=== PATIENT | male | born 1940 | race Caucasian/White ===

== ENCOUNTER 2017-04-17 23:13 | Inpatient (IN) | payer MEDICARE, BC ==
[~2017-04-17] VITALS: Ht 182.9 cm; Wt 173.9 kg
[2017-04-17 23:16] VITALS: TEMP 97.6
[2017-04-17 23:20] VITALS: O2SAT 93
[2017-04-17 23:21] VITALS: BP 185/72; PULSE 106; RESP 24; O2SAT 94
[2017-04-17] MEDS ORDERED: ONDANSETRON HCL 4 MG/2 ML VIAL IV PUSH ONE (23:30)
[2017-04-17] MEDS ORDERED: SODIUM CHLORIDE 0.9% FLUSH 10 ML FLUSH IV FLUSH PRN (23:30)
[2017-04-17] MEDS ORDERED: HYDROmorphone HCL PF 2 MG/ML VIAL IV PUSH ONE (23:30)
--- NOTE | 2017-04-17 23:33 | PD ---
HPI Chief Complaint: Abdominal Pain Time Seen by Provider: 23:27 Travel History International Travel<30 days: No Contact w/Intl Traveler<30days: No Traveled to known affect area: No History of Present Illness HPI 76-year-old male presents to the emergency department from home by EMS transport for evaluation of severe right lower quadrant abdominal pain onset 30 minutes after eating beef. Patient has known history of very large right-sided ventral hernia that has been determined to be electively inoperable as his physicians at the [facility] have identified to have a 50-50 chance of survival of the surgery due to his underlying health. Patient states that he always develops abdominal pain when he eats beef as he cannot tolerate beef consumption. Shortly after eating beef this evening he started having right lower quadrant pain. Patient states he has had a very large hernia for years more recently he thinks it might be slightly larger but has not changed significantly in size or character or location tonight or since yesterday. Patient rates pain as severe. No nausea or vomiting. Patient did take antacid without relief. Patient did not receive any pain medication en route by EMS. Patient only reports history of hypertension and denies CAD dyslipidemia diabetes COPD or peripheral vascular disease. [facility] Past Medical History Narrative Medical Hypertension morbid obesity sleep apnea cholesterol ventral hernia; nursing notes reviewed Hypertension: Yes Past Surgical History Abdominal Surgery: Yes (HERNIA) Social History Alcohol Use: Yes (OCCASIONALLY) Tobacco Use: No Substance Use: No Allergies-Medications (Allergen,Severity, Reaction): Coded Allergies: No Known Allergies (Unverified , 04/17/17) Reported Meds & Prescriptions Reported Meds & Active Scripts Active Reported Aller-Jessica (Cetirizine HCl) 10 Mg Tablet Flax Seed Oil 1300 mg (Flaxseed (Linseed)) 1,300-670MG Cap Aspirin 81 Mg Chew 81 Mg CHEW DAILY Atorvastatin (Atorvastatin Calcium) 40 Mg Tab 40 Mg PO HS Lisinopril 20 Mg Tab 20 Mg PO DAILY Amlodipine (Amlodipine Besylate) 10 Mg Tab 10 Mg PO DAILY Narrative Medication htn, cholesterol Review of Systems Except as stated in HPI: all other systems reviewed are Neg Physical Exam Narrative GENERAL: Obese male in obvious discomfort moaning SKIN: Warm and dry. HEAD: Normocephalic. EYES: No scleral icterus. No injection or drainage. NECK: Supple, trachea midline. No JVD or lymphadenopathy. CARDIOVASCULAR: Increased regular rate and rhythm without murmurs, gallops, or rubs. RESPIRATORY: Breath sounds equal bilaterally. No accessory muscle use. GASTROINTESTINAL: Abdomen soft, periumbilical tenderness to palpation , extremely large right side ventral hernia, not reducible (per patient no change x 15 years), non-rigid, diffusely distended. MUSCULOSKELETAL: No cyanosis, or edema. BACK: Nontender without obvious deformity. No CVA tenderness. Data Data Last Documented VS Vital Signs Date Time Temp Pulse Resp B/P (MAP) Pulse Ox O2 Delivery O2 Flow Rate FiO2 04/18/17 01:40 96 Non-Rebreather 15.00 04/18/17 01:39 136 24 134/58 (83) 04/17/17 23:16 97.6 Orders Orders Complete Blood Count With Diff (04/17/17 23:27) Comprehensive Metabolic Panel (04/17/17 23:27) Lipase (04/17/17 23:27) Lactic Acid (04/17/17 23:27) Prothrombin Time / Inr (Pt) (04/17/17 23:27) Act Partial Throm Time (Ptt) (04/17/17 23:27) Urinalysis - C+S If Indicated (04/17/17 23:27) Iv Access Insert/Monitor (04/17/17 23:27) Ecg Monitoring (04/17/17 23:27) Oximetry (04/17/17 23:27) Sodium Chloride 0.9% Flush (Ns Flush) (04/17/17 23:30) Electrocardiogram (04/17/17 23:27) Chest, Single Ap (04/17/17 23:27) Troponin I (04/17/17 23:27) Ondansetron Inj (Zofran Inj) (04/17/17 23:30) Hydromorphone Pf Inj (Dilaudid Pf Inj) (04/17/17 23:30) Hydromorphone Pf Inj (Dilaudid Pf Inj) (04/18/17 00:30) Sodium Chlor 0.9% 1000 Ml Inj (Ns 1000 M (04/18/17 00:30) Ct Abd/Pel W Iv Contrast(Rout) (04/18/17 00:49) Piperacil-Tazo 4.5 Gm Premix (Zosyn 4.5 (04/18/17 01:00) Resp Bipap / Cpap Non Invas Vt (04/18/17 ) Iohexol 350 Inj (Omnipaque 350 Inj) (04/18/17 01:23) Metronidazole 500 Mg Inj (Flagyl 500 Mg (04/18/17 01:30) Sodium Chlor 0.9% 1000 Ml Inj (Ns 1000 M (04/18/17 01:30) Sodium Chlor 0.9% 1000 Ml Inj (Ns 1000 M (04/18/17 01:45) Sodium Chlor 0.9% 1000 Ml Inj (Ns 1000 M (04/18/17 01:45) Sodium Chlor 0.9% 1000 Ml Inj (Ns 1000 M (04/18/17 02:00) Place Ng Tube To Low Intermit (04/18/17 01:47) Ng Gastric Tube Insert/Monitor (04/18/17 01:47) Admit Order (Ed Use Only) (04/18/17 ) Charter Pilot / Telemetry SAVANNA.Q8H (04/18/17 01:51) Diet Npo (04/18/17 Breakfast) Activity Bed Rest (04/18/17 01:51) Notify Dr: Other (04/18/17 01:51) Labs Laboratory Tests Test 04/17/17 23:44 White Blood Count 16.5 TH/MM3 Red Blood Count 5.35 MIL/MM3 Hemoglobin 16.2 GM/DL Hematocrit 48.2 % Mean Corpuscular Volume 90.2 FL Mean Corpuscular Hemoglobin 30.3 PG Mean Corpuscular Hemoglobin Concent 33.6 % Red Cell Distribution Width 15.0 % Platelet Count 202 TH/MM3 Mean Platelet Volume 10.9 FL Neutrophils (%) (Auto) 66.4 % Lymphocytes (%) (Auto) 30.2 % Monocytes (%) (Auto) 2.3 % Eosinophils (%) (Auto) 0.9 % Basophils (%) (Auto) 0.2 % Neutrophils # (Auto) 10.9 TH/MM3 Lymphocytes # (Auto) 5.0 TH/MM3 Monocytes # (Auto) 0.4 TH/MM3 Eosinophils # (Auto) 0.2 TH/MM3 Basophils # (Auto) 0.0 TH/MM3 CBC Comment DIFF FINAL Differential Comment Prothrombin Time 10.5 SEC Prothromb Time International Ratio 1.0 RATIO Activated Partial Thromboplast Time 22.5 SEC Blood Urea Nitrogen 15 MG/DL Creatinine 1.56 MG/DL Random Glucose 254 MG/DL Total Protein 8.3 GM/DL Albumin 3.9 GM/DL Calcium Level 9.4 MG/DL Alkaline Phosphatase 78 U/L Aspartate Amino Transf (AST/SGOT) 36 U/L Alanine Aminotransferase (ALT/SGPT) 26 U/L Total Bilirubin 0.7 MG/DL Sodium Level 139 MEQ/L Potassium Level 4.4 MEQ/L Chloride Level 105 MEQ/L Carbon Dioxide Level 24.2 MEQ/L Anion Gap 10 MEQ/L Estimat Glomerular Filtration Rate 44 ML/MIN Lactic Acid Level 3.4 mmol/L Troponin I LESS THAN 0.02 NG/ML Lipase 291 U/L MDM Medical Decision Making Medical Screen Exam Complete: Yes Emergency Medical Condition: Yes Medical Record Reviewed: Yes Interpretation(s) CBC & BMP Diagram 04/17/17 23:44 Total Protein 8.3 H, Albumin 3.9, Calcium Level 9.4, Alkaline Phosphatase 78, Aspartate Amino Transf (AST/SGOT) 36, Alanine Aminotransferase (ALT/SGPT) 26, Total Bilirubin 0.7 Vital Signs Date Time Temp Pulse Resp B/P (MAP) Pulse Ox O2 Delivery O2 Flow Rate FiO2 04/18/17 01:39 136 24 134/58 (83) 90 Nasal Cannula 5.00 04/17/17 23:21 24 04/17/17 23:21 106 24 185/72 (109) 94 Nasal Cannula 2.00 04/17/17 23:16 97.6 lactic acid: 3.4, elevated EKG: Sinus tachycardia rate [address] elevation or ectopy noted CT abd/pel: ONCLUSION: 1. There is a small amount of free intraperitoneal air indicating perforated bowel. The location of perforation is not identified. A small volume of free fluid is present within the abdomen and pelvis as well as the ventral hernia sac. 2. There is a large ventral abdominal wall hernia containing most of the small bowel and colon. It also contains free fluid. The hernia sac is not completely visualized since it extends outside of the imaged [id number]. 3. 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 4. Small right pleural effusion with bibasilar atelectasis versus consolidation. 5. The findings concerning perforated bowel were discussed with Dr. Spencer. Jatinder Fernandez MD on April 18, 2017 at 1:27 Board Certified Radiologist. This report was verified electronically. Differential Diagnosis Incarcerated hernia strangulated hernia bowel obstruction perforated viscus Narrative Course 1:[address] Thompson --free fluid free air; call to general surgery -- Dr Salguero Critical Care Narrative Aggregate critical care time was 35 minutes. Time to perform other separately billable procedures was not included in the critical care time. My time did not include minutes spent treating any other patients simultaneously or on activities that did not directly contribute to the patient's treatment. The services I provided to this patient were to treat and/or prevent clinically significant deterioration that could result in: Sepsis, septic shock, I provided critical care services requiring my management, as noted below: Chart data review, documentation time, medication orders and management, vital sign assessments/reviewing monitor data, ordering and reviewing lab tests, ordering and interpreting/reviewing x-rays and diagnostic studies, care of the patient and discussion of the patient with the admitting physicians. Sepsis Criteria SIRS Criteria (2 or more): Heart rate over 90, RR > 20 or PaCO2 < 32, WBC > 06099, < 4000 or > 10% bands Sepsis Criteria (SIRS+source): Infect source susp/known ( GI perforation/bowel) Physician Communication Physician Communication discussed with radiology; discussed with surgeon --no OR now, admit to ICU; discussed with videogame tester Diagnosis Primary Impression: Perforation of viscus Additional Impression: Sepsis Qualified Codes: A41.9 - Sepsis, unspecified organism Admitting Information Admitting Physician Requests: Admit Josie Spencer MD Apr 17, 2017 23:33
--- NOTE | 2017-04-17 23:49 | RADRPT ---
EXAM DATE/TIME: 04/17/2017 23:41 [facility] COMPARISON: No previous studies available for comparison. INDICATIONS : Shortness of breath, abdominal pain. MEDICAL HISTORY : Hypertension. SURGICAL HISTORY : None. ENCOUNTER: Initial ACUITY: 1 day PAIN SCORE: 0/10 LOCATION: Bilateral chest FINDINGS: Portable AP view of the chest demonstrates a normal-sized cardiac silhouette. Lungs are underinflated with mild bibasilar opacities. No pleural effusion or pneumothorax is identified. The bones and soft tissues demonstrate no acute finding. CONCLUSION: Underinflated with mild bibasilar opacity most likely representing atelectasis related to the underin flation or less likely mild airspace consolidation. Jatinder Fernandze MD on April 17, 2017 at 23:46 Board Certified Radiologist. This report was verified electronically.
[2017-04-17 23:59] LABS: AUTOMATED NEUTROPHIL # 10.9 TH/MM3 (1.8-7.7); BASOPHIL % 0.2 % (0.0-2.0); EOSINOPHIL # 0.2 TH/MM3 (0-0.4); EOSINOPHIL % 0.9 % (0.0-4.0); HEMATOCRIT 48.2 % (39.0-51.0); HEMOGLOBIN 16.2 GM/DL (13.0-17.0); LYMPH % 30.2 % (9.0-44.0); MEAN CELL VOLUME 90.2 FL (80.0-100.0); MEAN CORPUSCULAR HEMOGLOBIN 30.3 PG (27.0-34.0); MEAN CORPUSCULAR HGB CONC 33.6 % (32.0-36.0); MEAN PLATELET VOLUME 10.9 FL (7.0-11.0); MONO % 2.3 % (0.0-8.0); MONOCYTE # 0.4 TH/MM3 (0-0.9); NEUT % 66.4 % (16.0-70.0); PLATELET COUNT 202 TH/MM3 (150-450); RED BLOOD COUNT 5.35 MIL/MM3 (4.50-5.90); WHITE BLOOD COUNT 16.5 TH/MM3 (4.0-11.0)
[2017-04-18] VITALS (21 sets, daily range): BP systolic 72–148; BP diastolic 36–82; PULSE 112–140; RESP 24–41; TEMP 98.3–99.5; O2SAT 80–97
[2017-04-18 00:13] LABS: ALKALINE PHOSPHATASE 78 U/L (45-117); TOTAL BILIRUBIN ADULT 0.7 MG/DL (0.2-1.0); TOTAL PROTEIN 8.3 GM/DL (6.4-8.2); TROPONIN I LESS THAN 0.02 NG/ML (0.02-0.05)
[2017-04-18 00:15] LABS: PROTHROMBIN TIME - PATIENT 10.5 SEC (9.8-11.6)
[2017-04-18 00:19] LABS: ALBUMIN 3.9 GM/DL (3.4-5.0); ALT (GPT) 26 U/L (12-78); AST (GOT) 36 U/L (15-37); BICARBONATE 24.2 MEQ/L (21.0-32.0); BLOOD UREA NITROGEN 15 MG/DL (7-18); CALCIUM 9.4 MG/DL (8.5-10.1); CHLORIDE 105 MEQ/L (98-107); CREATININE 1.56 MG/DL (0.60-1.30); GLOMERULAR FILTRATION RATE 44 ML/MIN (>89); GLUCOSE,RANDOM 254 MG/DL (74-106); SODIUM (NA) 139 MEQ/L (136-145)
[2017-04-18] MEDS ORDERED: HYDROmorphone HCL PF 2 MG/ML VIAL IV PUSH ONE (00:30)
[2017-04-18] MEDS: SODIUM CHLOR 0.9% 1000 ML INJ 1,000 ML IV SCH ×4 (00:33→11:47)
[2017-04-18] MEDS ORDERED: PIPERACIL-TAZO 4.5 GM PREMIX 100 ML IV ONE (01:00)
[2017-04-18] MEDS ORDERED: IOHEXOL 350 MG/ML 10 ML VIAL (for RAD DIAG) IVCONTRAST ONE (01:23)
[2017-04-18] MEDS ORDERED: SODIUM CHLOR 0.9% 1000 ML INJ 1,000 ML IV ONE ×4 (01:30→02:00)
[2017-04-18] MEDS ORDERED: metroNIDAZOLE 500 MG INJ 100 ML IV ONE (01:30)
--- NOTE | 2017-04-18 01:38 | RADRPT ---
EXAM DATE/TIME: 04/18/2017 01:02 [facility] COMPARISON: No previous studies available for comparison. INDICATIONS : Right lower quadrant pain. IV CONTRAST: 80 cc Omnipaque 350 (iohexol) IV ORAL CONTRAST: No oral contrast ingested. RADIATION DOSE: 40.59 CTDIvol (mGy) ; Patient body habitus; Patient positioning MEDICAL HISTORY : Hypertension. Ventral hernia. SURGICAL HISTORY : None. ENCOUNTER: Initial ACUITY: 1 day PAIN SCALE: 10/10 LOCATION: Right lower quadrant TECHNIQUE: Volumetric scanning of the abdomen and pelvis was performed. Using automated exposure control and ad justment of the mA and/or kV according to patient size, radiation dose was kept as low as reasonably achievable to obtain optimal diagnostic quality images. DICOM format image data is available electro nically for review and comparison. FINDINGS: LOWER LUNGS: There is trace right pleural effusion with bilateral lower lobe atelectasis versus consolidation. LIVER: Homogeneous density without lesion. There is no dilation of the biliary tree. No calcified gallston es. SPLEEN: Normal size without lesion. PANCREAS: Within normal limits. KIDNEYS: Normal in size and shape. There is no mass, stone or hydronephrosis. There are bilateral renal sinus cysts. ADRENAL GLANDS: Within normal limits. VASCULAR: There is moderate severe atherosclerotic disease with ectatic infrarenal aorta. There is a common zahida ac artery aneurysm on the right measuring 3.2 cm. BOWEL/MESENTERY: A small hiatal hernia is present. Stomach demonstrates no acute finding. Almost the entire small josiah l is located within a ventral hernia which extends off the imaged [id number]. Multiple attempts we re made to include this in the area of imaging without success. Most of the colon is also within the ventral hernia. The sigmoid colon demonstrates diverticulosis and is located within a ventral hernia that extends to the left. A small volume of free air is present within the abdomen and there is a sma ll volume of free fluid in the abdomen and pelvis. ABDOMINAL WALL: There is a large ventral anterior abdominal wall hernia containing most of the small bowel and colon. It is not completely imaged. It contains a small amount of free fluid. RETROPERITONEUM: There is no lymphadenopathy. BLADDER: No wall thickening or mass. REPRODUCTIVE: Within normal limits. INGUINAL: There is no lymphadenopathy. There is a small fat containing left inguinal hernia. MUSCULOSKELETAL: There are degenerative changes of the lumbar spine. CONCLUSION: 1. There is a small amount of free intraperitoneal air indicating perforated bowel. The location of p erforation is not identified. A small volume of free fluid is present within the abdomen and pelvis a s well as the ventral hernia sac. 2. There is a large ventral abdominal wall hernia containing most of the small bowel and colon. It al so contains free fluid. The hernia sac is not completely visualized since it extends outside of the i bree [id number]. 3. Moderate to severe atherosclerotic disease with right common iliac artery aneurysm measuring 3.2 c m. 4. Small right pleural effusion with bibasilar atelectasis versus consolidation. 5. The findings concerning perforated bowel were discussed with Dr. Spencer. Jatinder Fernandez MD on April 18, 2017 at 1:27 Board Certified Radiologist. This report was verified electronically.
[2017-04-18] MEDS ORDERED: ACETAMINOPHEN 325 MG TAB PO PRN (02:00)
[2017-04-18] MEDS ORDERED: MAGNESIUM HYDROXIDE SUSP 30 ML CUP PO PRN (02:00)
[2017-04-18] MEDS ORDERED: SENNOSIDES 8.6 MG TAB PO PRN (02:00)
[2017-04-18] MEDS ORDERED: BISACODYL 10 MG SUPP RECTAL PRN (02:00)
[2017-04-18] MEDS ORDERED: MISCELLANEOUS NURSING INFORMATION XX SCH (02:00)
[2017-04-18] MEDS ORDERED: ONDANSETRON HCL 4 MG/2 ML VIAL IV PUSH PRN (02:00)
[2017-04-18] MEDS ORDERED: LACTULOSE SYRUP 20 GM/30 ML CUP PO PRN (02:00)
[2017-04-18] MEDS ORDERED: CHLORHEXIDINE GLUCONATE 2 % 1 PACK (2 CLOTHS) TOP PRN (02:00)
[2017-04-18] MEDS ORDERED: RESP: ALBUTEROL 2.5 MG/IPRATROPIUM 0.5 MG NEB (PRN) INH (02:00)
[2017-04-18] MEDS ORDERED: ZOLPIDEM TARTRATE 5 MG TAB PO PRN (02:00)
[2017-04-18] MEDS ORDERED: SODIUM CHLORIDE 0.9% FLUSH 10 ML FLUSH IV FLUSH PRN ×2 (02:00→09:15)
--- NOTE | 2017-04-18 02:10 | HHI.HP ---
HPI Service Critical Care Medicine Primary Care Physician Non-Staff Admission Diagnosis Viscous perforation; sepsis Diagnosis: Travel History International Travel<30 Days: No Contact w/Intl Traveler <30 Da: No Traveled to Known Affected Are: No History of Present Illness 76-year-old male presents to the emergency department from home by EMS transport for evaluation of severe right lower quadrant abdominal pain onset 30 minutes after eating beef. Patient has known history of very large right-sided ventral hernia that has been determined to be electively inoperable as his physicians at the [facility] have identified to have a 50-50 chance of survival of the surgery due to his underlying health. Patient states that he always develops abdominal pain when he eats beef as he cannot tolerate beef consumption. Shortly after eating beef this evening he started having right lower quadrant pain. Patient states he has had a very large hernia for years more recently he thinks it might be slightly larger but has not changed significantly in size or character or location tonight or since yesterday. Patient rates pain as severe. No nausea or vomiting. Patient did take antacid without relief. Review of Systems Constitutional: COMPLAINS OF: Diaphoretic episodes, DENIES: Fatigue, Fever, Weight gain, Weight loss, Chills, Dizziness, Change in appetite, Night Sweats Endocrine: DENIES: Heat/cold intolerance, Polydipsia, Polyuria, Polyphagia Eyes: DENIES: Blurred vision, Diplopia, Eye inflammation, Eye pain, Vision loss , Photosensitivity, Double Vision Ears, nose, mouth, throat: DENIES: Tinnitus, Hearing loss, Vertigo, Nasal discharge, Oral lesions, Throat pain, Hoarseness, Ear Pain, Running Nose, Epistaxis, Sinus Pain, Toothache, Odynophagia Respiratory: DENIES: Apneas, Cough, Snoring, Wheezing, Hemoptysis, Sputum production, Shortness of breath Cardiovascular: DENIES: Chest pain, Palpitations, Syncope, Dyspnea on Exertion , PND, Lower Extremity Edema, Orthopnea, Claudication Gastrointestinal: COMPLAINS OF: Abdominal pain, DENIES: Black stools, Bloody stools, Constipation, Diarrhea, Nausea, Vomiting, Difficulty Swallowing, Anorexia Genitourinary: DENIES: Sexual dysfunction, Urinary frequency, Urinary incontinence, Urgency, Hematuria, Dysuria, Nocturia, Penile Discharge, Testicular Pain, Testicular Swelling Musculoskeletal: DENIES: Joint pain, Muscle aches, Stiffness, Joint Swelling, Back pain, Neck pain Integumentary: DENIES: Abnormal pigmentation, Nail changes, Pruritus, Rash Hematologic/lymphatic: DENIES: Bruising, Lymphadenopathy Immunologic/allergic: DENIES: Eczema, Urticaria Neurologic: DENIES: Abnormal gait, Headache, Localized weakness, Paresthesias, Seizures, Speech Problems, Tremor, Poor Balance Psychiatric: DENIES: Anxiety, Confusion, Mood changes, Depression, Hallucinations, Agitation, Suicidal Ideation, Homicidal Ideation, Delusions Past Family Social History Allergies: Coded Allergies: No Known Allergies (Unverified , 04/17/17) Past Medical History Hypertension Obstructive sleep apnea Dyslipidemia Ventral hernia Past Surgical History Hernia repair Reported Medications Reported Meds & Active Scripts Active Reported Aller-Jessica (Cetirizine HCl) 10 Mg Tablet Flax Seed Oil 1300 mg (Flaxseed (Linseed)) 1,300-670MG Cap Aspirin 81 Mg Chew 81 Mg CHEW DAILY Atorvastatin (Atorvastatin Calcium) 40 Mg Tab 40 Mg PO HS Lisinopril 20 Mg Tab 20 Mg PO DAILY Amlodipine (Amlodipine Besylate) 10 Mg Tab 10 Mg PO DAILY Active Ordered Medications Current Medications Medications (Trade) Dose Ordered Sig/Gracy Route PRN Reason Start Time Stop Time Status Last Admin Dose Admin Sodium Chloride (NS Flush) 2 ml UNSCH PRN IV FLUSH FLUSH AFTER USING IV ACCESS 04/17/17 23:30 Sodium Chloride 1,000 ml @ 125 mls/hr Q8H IV 04/18/17 00:30 04/18/17 00:33 Metronidazole 100 ml @ 100 mls/hr ONCE ONCE IV 04/18/17 01:30 04/18/17 02:29 04/18/17 01:50 Sodium Chloride 1,000 ml @ 999 mls/hr BOLUS ONCE IV 04/18/17 01:30 04/18/17 02:30 04/18/17 01:46 Sodium Chloride 1,000 ml @ 999 mls/hr BOLUS ONCE IV 04/18/17 01:45 04/18/17 02:45 04/18/17 01:59 Sodium Chloride 1,000 ml @ 999 mls/hr BOLUS ONCE IV 04/18/17 01:45 04/18/17 02:45 04/18/17 01:59 Sodium Chloride 1,000 ml @ 999 mls/hr BOLUS ONCE IV 04/18/17 02:00 04/18/17 03:00 Family History No family history of critical early coronary artery disease Social History Alcohol Use: Yes (OCCASIONALLY) Tobacco Use: No Substance Use: No Physical Exam Vital Signs Vital Signs Date Time Temp Pulse Resp B/P (MAP) Pulse Ox O2 Delivery O2 Flow Rate FiO2 04/18/17 01:40 96 Non-Rebreather 15.00 04/18/17 01:39 136 24 134/58 (83) 90 Nasal Cannula 5.00 04/18/17 00:00 112 24 139/61 (87) 94 Nasal Cannula 4.00 04/17/17 23:21 24 04/17/17 23:21 106 24 185/72 (109) 94 Nasal Cannula 2.00 04/17/17 23:20 93 Nasal Cannula 2.00 04/17/17 23:16 97.6 Physical Exam GENERAL: Morbidly obese gentleman in moderate distress SKIN: Warm and dry. HEAD: Normocephalic. EYES: No scleral icterus. No injection or drainage. NECK: Supple, trachea midline. No JVD or lymphadenopathy. CARDIOVASCULAR: Regular rate and rhythm without murmurs, gallops, or rubs. RESPIRATORY: Breath sounds equal bilaterally. No accessory muscle use. GASTROINTESTINAL: Abdomen soft, periumbilical tenderness to palpation , extremely large right side ventral hernia, not reducible (per patient no change x 15 years), non-rigid, diffusely distended. MUSCULOSKELETAL: No cyanosis, or edema. BACK: Nontender without obvious deformity. NEURO EXAM: GCS: 15 Mental Status: The patient is alert and oriented to person, place, and time with normal speech. Laboratory Laboratory Tests Test 04/17/17 23:44 White Blood Count 16.5 Red Blood Count 5.35 Hemoglobin 16.2 Hematocrit 48.2 Mean Corpuscular Volume 90.2 Mean Corpuscular Hemoglobin 30.3 Mean Corpuscular Hemoglobin Concent 33.6 Red Cell Distribution Width 15.0 Platelet Count 202 Mean Platelet Volume 10.9 Neutrophils (%) (Auto) 66.4 Lymphocytes (%) (Auto) 30.2 Monocytes (%) (Auto) 2.3 Eosinophils (%) (Auto) 0.9 Basophils (%) (Auto) 0.2 Neutrophils # (Auto) 10.9 Lymphocytes # (Auto) 5.0 Monocytes # (Auto) 0.4 Eosinophils # (Auto) 0.2 Basophils # (Auto) 0.0 CBC Comment DIFF FINAL Differential Comment Prothrombin Time 10.5 Prothromb Time International Ratio 1.0 Activated Partial Thromboplast Time 22.5 Blood Urea Nitrogen 15 Creatinine 1.56 Random Glucose 254 Total Protein 8.3 Albumin 3.9 Calcium Level 9.4 Alkaline Phosphatase 78 Aspartate Amino Transf (AST/SGOT) 36 Alanine Aminotransferase (ALT/SGPT) 26 Total Bilirubin 0.7 Sodium Level 139 Potassium Level 4.4 Chloride Level 105 Carbon Dioxide Level 24.2 Anion Gap 10 Estimat Glomerular Filtration Rate 44 Lactic Acid Level 3.4 Troponin I LESS THAN 0.02 Lipase 291 Result Diagram: 04/17/17 2344 04/17/17 2344 Imaging Last 24 hours Impressions Abdomen/Pelvis CT 04/18/17 0049 Signed Impressions: Service Date/Time: April 01:02 - CONCLUSION: 1. There is a small amount of free intraperitoneal air indicating perforated bowel. The location of perforation is not identified. A small volume of free fluid is present within the abdomen and pelvis as well as the ventral hernia sac. 2. There is a large ventral abdominal wall hernia containing most of the small bowel and colon. It also contains free fluid. The hernia sac is not completely visualized since it extends outside of the imaged [id number]. 3. 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 4. Small right pleural effusion with bibasilar atelectasis versus consolidation. 5. The findings concerning perforated bowel were discussed with Dr. Spencer. Jatinder Fernandez MD Chest X-Ray 04/18/17 0000 Signed Impressions: Service Date/Time: April 04:00 - CONCLUSION: Stable chest x-ray with mild bibasilar opacity representing either atelectasis or consolidation. Jatinder Fernandez MD Chest X-Ray 04/17/17 2327 Signed Impressions: Service Date/Time: Monday, April 17, 2017 23:41 - CONCLUSION: Underinflated with mild bibasilar opacity most likely representing atelectasis related to the underinflation or less likely mild airspace consolidation. Jatinder Fernandez MD Septic Shock Reassessment Septic shock perfusion: reassessment completed Caprini VTE Risk Assessment Caprini VTE Risk Assessment: Mod/High Risk (score >= 2) Caprini Risk Assessment Model Point Value = 1 Point Value = 2 Point Value = 3 Point Value = 5 Age 41-60 Minor surgery BMI > 25 kg/m2 Swollen legs Varicose veins or History of unexplained or recurrent spontaneous Oral contraceptives or hormone replacement Sepsis (< 1 month) Serious lung disease, including pneumonia (< 1 month) Abnormal pulmonary function Acute myocardial infarction Congestive heart failure (< 1 month) History of inflammatory bowel disease Medical patient at bed rest Age 61-74 Arthroscopic surgery Major open surgery (> 45 min) Laparoscopic surgery (> 45 min) Malignancy Confined to bed (> 72 hours) Immobilizing plaster cast Central venous access Age >= 75 History of VTE Family history of VTE Factor V Leiden Prothrombin [id number] Lupus anticoagulant Anticardiolipin antibodies Elevated serum homocysteine Heparin-induced thrombocytopenia Other congenital or acquired thrombophilia Stroke (< 1 month) Elective arthroplasty Hip, pelvis, or leg fracture Acute spinal cord injury (< 1 month) Prophylaxis Regimen Total Risk Factor Score Risk Level Prophylaxis Regimen 0-1 Low Early ambulation 2 Moderate Order ONE of the following: *Sequential Compression Device (SCD) *Heparin 5000 units SQ BID 3-4 Higher Order ONE of the following medications: *Heparin 5000 units SQ TID *Enoxaparin/Lovenox 40 mg SQ daily (WT < 150 kg, CrCl > 30 mL/min) *Enoxaparin/Lovenox 30 mg SQ daily (WT < 150 kg, CrCl > 10-29 mL/min) *Enoxaparin/Lovenox 30 mg SQ BID (WT < 150 kg, CrCl > 30 mL/min) AND/OR *Sequential Compression Device (SCD) 5 or more Highest Order ONE of the following medications: *Heparin 5000 units SQ TID (Preferred with Epidurals) *Enoxaparin/Lovenox 40 mg SQ daily (WT < 150 kg, CrCl > 30 mL/min) *Enoxaparin/Lovenox 30 mg SQ daily (WT < 150 kg, CrCl > 10-29 mL/min) *Enoxaparin/Lovenox 30 mg SQ BID (WT < 150 kg, CrCl > 30 mL/min) AND *Sequential Compression Device (SCD) Assessment and Plan Assessment and Plan Ventral hernia - CT negative for viscus perforation or strangulation - Evaluation by general surgery consultation - Pain control - Nothing by mouth Lactic acidosis - Due to above - Empirically Zosyn - IV fluid hydration - Monitor trend Acute kidney injury - Unknown baseline creatinine - Dehydration - IV fluids resuscitation - Strict I's and O's - Monitor trend Hypertension - Lisinopril - Norvasc - Hold current medications due to borderline blood pressure - Resume when indicated Dyslipidemia - Atorvastatin Coronary artery disease - Aspirin 81 Mg hold for possible surgical intervention DVT GI prophylaxis - Teds SCDs - Lovenox - Protonix Critical Care: The total critical care time was 35 minutes. Time to perform other separately billable procedures was not included in the critical care time. Jeffry Curtis MD Apr 18, 2017 2:10 am
[2017-04-18] MEDS ORDERED: AMLO10TA2 PO (02:21)
[2017-04-18] MEDS ORDERED: ASPI-516 CHEW (02:21)
[2017-04-18] MEDS ORDERED: LISI-515 PO (02:21)
[2017-04-18] MEDS ORDERED: [UNRECOGNIZED DRUG - CODE] (02:21)
[2017-04-18] MEDS ORDERED: ATOR40TA16 PO (02:21)
[2017-04-18] MEDS ORDERED: FLAX1300 (02:21)
[2017-04-18] MEDS ORDERED: MORPHINE SULFATE 2 MG/ML INJ IV PRN (02:30)
[2017-04-18] MEDS: PANTOPRAZOLE SODIUM 40 MG VIAL IV PUSH SCH ×2 (02:35→14:28)
[2017-04-18] MEDS ORDERED: CHLORHEXIDINE GLUCONATE 2 % 1 PACK (2 CLOTHS) TOP SCH (04:00)
--- NOTE | 2017-04-18 05:13 | RADRPT ---
EXAM DATE/TIME: 04/18/2017 04:00 [facility] COMPARISON: CT ABDOMEN & PELVIS W CONTRAST, April 18, 2017, 1:02. CHEST SINGLE AP, April 17, 2017, 23:41. INDICATIONS : Short of breath. MEDICAL HISTORY : Hypertension. SURGICAL HISTORY : None. ENCOUNTER: Subsequent ACUITY: 2 days PAIN SCORE: 0/10 LOCATION: Bilateral chest FINDINGS: Portable AP view of the chest demonstrates a normal-sized cardiac silhouette. Nasogastric tube is pre sent. Lungs are underinflated with mild bibasilar opacity. No pleural effusion or pneumothorax is isreal ntified. Bones demonstrate no acute finding. CONCLUSION: Stable chest x-ray with mild bibasilar opacity representing either atelectasis or consolidation. Jatinder Fernandez MD on April 18, 2017 at 5:11 Board Certified Radiologist. This report was verified electronically.
[2017-04-18] MEDS: PIPERACIL-TAZO 4.5 GM PREMIX 100 ML IV SCH ×3 (07:58→20:00)
[2017-04-18] MEDS ORDERED: ETOMIDATE 40 MG/20 ML VIAL IV PUSH ONE (08:15)
[2017-04-18] MEDS ORDERED: TERBUTALINE INJ 1 MG/ML AMP SQ PRN ×2 (08:15→17:00)
[2017-04-18] MEDS ORDERED: PHENYLEPHRINE INJ 160 MG in DEXTROSE 5% IN WATE 500 ML INJ 484 ML IV PRN ×2 (08:15)
[2017-04-18] MEDS ORDERED: ROCURONIUM INJ 100 MG/10 ML VIAL IV ONE (08:15)
[2017-04-18] MEDS ORDERED: fentaNYL DRIP 250 ML IV PRN (08:15)
[2017-04-18] MEDS ORDERED: ROCURONIUM INJ 50 MG/5 ML VIAL ONE (08:24)
[2017-04-18] MEDS ORDERED: PROPOFOL 500 MG/50 ML INJ 50 ML ONE (08:32)
[2017-04-18] MEDS: PROPOFOL 1000 MG/100 ML INJ 100 ML IV PRN ×2 (08:48→14:18)
[2017-04-18] MEDS ORDERED: SODIUM CHLORIDE 0.9% FLUSH 10 ML FLUSH IV FLUSH SCH ×2 (09:00→09:15)
[2017-04-18] MEDS ORDERED: ENOXAPARIN SODIUM 40 MG/0.4 ML SYRINGE SQ SCH (09:00)
[2017-04-18] MEDS: DOCUSATE SODIUM 50 MG/SENNA 8.6 MG TAB PO SCH ×2 (09:00→21:00)
--- NOTE | 2017-04-18 09:09 | PD.PROCEDR ---
Procedure Note Procedure DATE: 04/18/2017 CENTRAL LINE PLACEMENT: Right Internal jugular vein. Ultrasound-guided INDICATION: Central venous access CONSENT Informed consent for procedure was obtained from . DESCRIPTION OF THE PROCEDURE The patient was placed in supine position. The skin was cleansed with Chloraprep. Additional barrier precautions included large sterile drape, sterile gloves, sterile gown, face mask, and hat. 1 % lidocaine was used for local anesthesia. Under direct ultrasound guidance and on initial attempt, the vein was accessed with an introducer needle. The guide wire was advanced and the tract was dilated. Using Seldinger technique a 7 Frisian 20 cm antimicrobial coated triple-lumen catheter was advanced to a depth of 18 centimeters. The guide wire was removed. All ports had good return of dark venous blood and flushed easily with saline. The central line was secured with 2.0 silk. A sterile dressing with antibiotic disc was applied. ESTIMATED BLOOD LOSS: Minimal COMPLICATIONS: No apparent complications. STAT chest x-ray pending at time of dictation Haider Gagnon MD Apr 18, 2017 09:09
--- NOTE | 2017-04-18 09:10 | PD.PROCEDR ---
Procedure Note Procedure DATE: 04/18/2017 PROCEDURE: Orotracheal intubation INDICATION: Acute hypoxemic respiratory failure DETAILS OF PROCEDURE The patient was placed in optimal position and preoxygenated with 100% FiO2 via bag valve mask. At the start oxygen saturation was 95%. The patient was administered 20 mg etomidate IV and 50 mg rocuronium IV. I entered the oropharynx with a size 4 GVL glidescope blade and obtained a grade 2 view of the airway. On single attempt a size 8.0 cuffed endotracheal tube was passed through the vocal cords. Correct tube location was confirmed with end tidal CO2 detector and by auscultating over bilateral lung ordoñez. The endotracheal tube was secured with adhesive tape at a depth of 24 cm at the lips. The patient was connected to the ventilator. The patient tolerated the procedure well without any apparent complications. Oxygen saturations were maintained greater than 95% all times. STAT chest x-ray pending at time of dictation. Haider Gagnon MD Apr 18, 2017 09:10
[2017-04-18] MEDS ORDERED: LABETALOL HCL 100 MG/20 ML VIAL IV PUSH PRN (09:15)
[2017-04-18] MEDS ORDERED: niCARdipine INJ 25 MG in SODIUM CHLOR 0.9% 250 ML INJ 240 ML IV PRN (09:15)
[2017-04-18] MEDS ORDERED: NITROGLYCERIN 2% OINT 1 GM PACKET TOPICAL PRN (09:15)
[2017-04-18] MEDS ORDERED: ACETAMINOPHEN 1000 MG/100 ML 100 ML IV PRN (09:30)
[2017-04-18] MEDS ORDERED: RESP: ALBUTEROL 2.5 MG/3 ML NEB (PRN) NEB (09:30)
[2017-04-18] MEDS ORDERED: GLUCAGON 1 MG/ML VIAL OTHER PRN (09:30)
[2017-04-18] MEDS ORDERED: Vancomycin Consult Pharmacy 1 EA OTHER SCH (09:30)
[2017-04-18] MEDS ORDERED: DEXTROSE 50% IN WATER 50 ML VIAL(D50) IV PUSH PRN (09:30)
--- NOTE | 2017-04-18 09:34 | HHI.CCPN ---
Subjective Remarks/Hospital Course 76-year-old male presents to the emergency department from home by EMS transport for evaluation of severe right lower quadrant abdominal pain onset 30 minutes after eating beef. Patient has known history of very large right-sided ventral hernia that has been determined to be electively inoperable as his physicians at the [facility] have identified to have a 50-50 chance of survival of the surgery due to his underlying health. Patient states that he always develops abdominal pain when he eats beef as he cannot tolerate beef consumption. Shortly after eating beef this evening he started having right lower quadrant pain. Patient states he has had a very large hernia for years more recently he thinks it might be slightly larger but has not changed significantly in size or character or location tonight or since yesterday. Patient rates pain as severe. No nausea or vomiting. Patient did take antacid without relief. Subjective 04/18: Discussed with patient/ Dr. Salguero. Electively intubated due to worsening hypoxia and severe sepsis with central line placed. Plantar IR today for possible drainage. If clinical condition worsens after patient will take back to the OR for open evaluation. Currently not on vasopressors. Tachycardic. Objective Vital Signs Date Time Temp Pulse Resp B/P (MAP) Pulse Ox O2 Delivery O2 Flow Rate FiO2 04/18/17 08:57 97 100 04/18/17 06:00 127 28 132/63 (86) 04/18/17 03:33 98.7 04/18/17 03:18 Non-Rebreather 04/18/17 01:40 15.00 Intake and Output 04/18/17 04/18/17 04/19/17 08:00 16:00 00:00 Intake Total 3475 ml Output Total 1200 ml Balance 2275 ml Result Diagram: 04/17/17 2344 04/17/17 2344 Imaging Last Impressions Abdomen/Pelvis CT 04/18/17 0049 Signed Impressions: Service Date/Time: April 01:02 - CONCLUSION: 1. There is a small amount of free intraperitoneal air indicating perforated bowel. The location of perforation is not identified. A small volume of free fluid is present within the abdomen and pelvis as well as the ventral hernia sac. 2. There is a large ventral abdominal wall hernia containing most of the small bowel and colon. It also contains free fluid. The hernia sac is not completely visualized since it extends outside of the imaged [id number]. 3. 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 4. Small right pleural effusion with bibasilar atelectasis versus consolidation. 5. The findings concerning perforated bowel were discussed with Dr. Spencer. Jatinder Fernandez MD Chest X-Ray 04/18/17 0000 Signed Impressions: Service Date/Time: April 04:00 - CONCLUSION: Stable chest x-ray with mild bibasilar opacity representing either atelectasis or consolidation. Jatinder Fernandez MD Objective Remarks GENERAL: 76-year-old male resting in bed will orotracheally intubated SKIN: Warm and dry. Well perfused. HEAD: Normocephalic. Atraumatic EYES: No scleral icterus. No injection or drainage. Pupils are round 3 mm bilaterally and reactive NECK: Supple, trachea midline. No JVD or lymphadenopathy. Right IJ is clean dry and intact CARDIOVASCULAR: Tachycardic, RR. Distant. S1, S2. No S4. Without murmur RESPIRATORY:Sounds throughout due to body habitus. No wheezing GASTROINTESTINAL: Abdomen soft, periumbilical tenderness to palpation , extremely large right side ventral hernia, not reducible (per patient no change x 15 years), non-rigid, diffusely distended. MUSCULOSKELETAL: Nonpitting bilateral lower extremity edema. NEURO EXAM: Cranial nerves II through XII appear grossly intact. Prior to intubation strength is equal symmetric bilaterally. Normal sensation. No focal deficits Urinary Catheter: Yes Assessment to: Continue Marsh insert reason: Prolonged Immobilization Vascular Central Line Catheter: Yes Assessment to: Continue Line: Central Venous Catheter Side: Right Location: Internal, Jugular A/P Assessment and Plan Neuro/Psych: Allergic rhinitis Currently on propofol/fentanyl drips for sedation/analgesia while intubated Goal of RA SS -2 Daily sedation vacation Holding cetirizine 10 mg daily for allergic rhinitis CV: Severe sepsis Sinus tachycardia Lactic acidosis Elevated troponin Currently holding atorvastatin 40 mg by mouth daily for dyslipidemia. Resume when clinically indicated Holding amlodipine 10 g daily, lisinopril 20 mg daily for hypertension with severe sepsis/acute kidney injury with lisinopril. Resume when clinically indicated Holding aspirin 81 mg daily with possible upcoming surgery. 2-D echocardiogram again pending Troponin currently 0.55. Currently on sinus tachycardia. Likely demand ischemia secondary to underlying severe sepsis. Resp: Acute hypoxemic respiratory failure Obstructive sleep apnea Possible right lower lobe infiltrate PRVC 16/550/1.3/8/100 Ventilator bundle Abuse/ipratropium aerosols every 6 hours albuterol aerosol every 2 hours when necessary Dyspnea Follow-up chest x-ray post intubation with ABG Patient did not bring in his CPAP machine to the hospital GI: Perforated viscus/free air Large ventral hernia CT abdomen/pulse revealed free intraperitoneal air. Ventral hernia encompasses entire small bowel and colon Free fluid in the abdomen/pelvis and ventral hernia. Atherosclerotic vascular disease right common iliac artery 3.[address] Salguero/general surgery. Place for IR for drainage. If patient worsens Dr. Salguero will take back to the OR for exploratory surgery Metoprolol 40 mg IV twice a day GI prophylaxis Procedure evaluated by [facility]. 50% mortality with surgery given this patient : Marsh catheter for accurate I's and O's in a critically ill patient Endo: Elevated MBS - Sliding-scale insulin with Accu-Cheks every 4 hours to maintain euglycemia Novulin R medium regimen Check hemoglobin A1c and TSH Renal: Acute kidney injury Avoid nephrotoxic drugs CT abdomen/pelvis revealed no hydronephrosis Monitor urine output with Marsh catheter Check urine eosinophils and urinary electrolytes Heme: Leukocytosis Monitor CBC daily/follow trends No indications for transfusion of blood products at this time ID: Received piperacillin/tazobactam and metronidazole ED. Currently day 1 piperacillin/tazobactam, fluconazole, metronidazole and vancomycin Blood cultures 2/sputum/urine output MSK: Elevated BMI Weight loss encouraged PT evaluate and treat FEN: Replace electrolytes as clinically indicated Access - Right IJ CVL day 1 placed 04/18 Prophylaxis - GI - pantoprazole - DVT - SCD/enoxaparin 35 minutes additional critical care minutes spent in care of this patient discussed with , patient. Dr. Salguero and RN. Discussed with Dr. Salguero. Discussed with . Discussed with palliative care. does not wish aggressive therapy including surgery. Mr. Serrato would have prolonged recovery with open abdomen post intervention with prolonged recovery time. Daughter coming down tonight and likely will extubate tomorrow with transition to comfort cares. DNR status currently. Haider Gagnon MD Apr 18, 2017 09:34
--- NOTE | 2017-04-18 10:15 | RADRPT ---
EXAM DATE/TIME: 04/18/2017 09:21 [facility] COMPARISON: CHEST SINGLE AP, April 18, 2017, 4:00. INDICATIONS : Post right intrajugular and intubation placements. MEDICAL HISTORY : Hypertension. Ventral hernia SURGICAL HISTORY : None. ENCOUNTER: Initial ACUITY: 1 day PAIN SCORE: Non-responsive. LOCATION: Bilateral chest FINDINGS: A single view of the chest demonstrates stable appearance of the lungs with minimal bibasilar atelect atic changes. Stable elevation of the right hemidiaphragm. Interval placement of an endotracheal tube appropriately positioned above the tracy. Right IJ central venous catheter is identified with the t ip projecting over the central venous system. Stable position of the nasogastric tube which crosses t he GE junction and extends off the inferior aspect of the image. Heart size is borderline but well compensated. Osseous structures are grossly intact with minimal deg enerative changes of the dorsal spine. CONCLUSION: 1. Interval placement of an endotracheal tube appropriately positioned above the tracy. Interval kendy cement of right IJ central venous catheter with the tip projecting over the central venous system. 2. Stable appearance of the lungs with elevation of right hemidiaphragm, bibasilar atelectatic change s but no pneumothorax. 3. Heart size is borderline prominent but well compensated Favian Graham MD on April 18, 2017 at 10:10 Board Certified Radiologist. This report was verified electronically.
[2017-04-18] MEDS: RESP: ALBUTEROL 2.5 MG/IPRATROPIUM 0.5 MG NEB (SCH) NEB ×3 (10:37→19:37)
[2017-04-18] MEDS ORDERED: FLUCONAZOLE 200 MG PREMIX BAG 100 ML IV SCH (11:00)
[2017-04-18] MEDS: metroNIDAZOLE 500 MG INJ 100 ML IV SCH ×3 (11:46→22:00)
[2017-04-18] MEDS ORDERED: VANCOMYCIN INJ 2,250 MG in SODIUM CHLORID 0.9% 500 ML INJ 500 ML IV SCH (12:00)
[2017-04-18] MEDS: INSULIN NovoLIN REGULAR SUPPLEMENTAL SCALE SQ SCH ×3 (12:00→20:00)
[2017-04-18] MEDS ORDERED: ALBUMIN 5% INJ 500 ML IV ONE (12:30)
[2017-04-18] MEDS ORDERED: LACTATED RINGER'S 1000 ML INJ 1,000 ML IV ONE (12:30)
--- NOTE | 2017-04-18 14:01 | PD.CONS ---
Consult Service Palliative Care . Consult Requested By Dr. Gagnon. . Primary Care Physician Non-Staff . Reason for Consultation a. To assist with evaluation and management of symptoms including: dyspnea, pain b. To assist medical decision maker(s) with: better understanding of current medical conditions; weighing benefits/burdens of medical treatment options; making medical treatment decisions. . HPI History of Present Illness Mr Serrato is a 76-year-old, morbidly obese male who presented to [facility] on 04/17/2017 for evaluation of severe RLQ that began earlier that evening. Patient has a known history of a large right-sided ventral hernia. Patient's stated her elected not to have surgical repair after being told he was high risk for surgery with a "50-50 chance of survival" due underlying medical conditions. Patient reported acute onset, severe pain that began after eating dinner. Denied associated nausea and vomiting. Patient took an antacid without relief. Patient presented to the ED tachypneic and tachycardic with HR of 136 and RR of 24. Oxygen saturation was 96% on 15 L via nonrebreather. Additional diagnostic data: * WBC: 16.5, hemoglobin 16.2, hematocrit 48.2, platelets 202, neutrophils 66.4% * Sodium: 139, potassium 4.4, chloride 105, carbon dioxide 24.2, Sean 254, calcium 9.4 * BUN: 15, creatinine 1.56, GFR 44 * Total bilirubin: 0.7, AST 36, ALT 26, alkaline phosphatase 78 * Lactic acid: 3.4 * Troponin: <0.02 * Total protein: 8.3, albumin 3.9 * EKG: Sinus tachycardia rate [address] elevation or ectopy noted CT of the abdomen revealed a small amount of free intraperitoneal air indicating perforated bowel; the location of perforation is not attentive 5; a small volume of free fluid is present within the abdomen and pelvis as well as the central hernia sac; there is a large ventral abdominal wall hernia containing most of the small bowel and colon it also contains free fluid. The hernia sac is not completely sleep visualized since it extends outside of the imaged field of view. 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 Patient received Zosyn and Metronidazole while in the ED. He was subsequently admitted to critical care services for further evaluation and medical management of perforated viscus and sepsis; general surgery was consulted. Patient was electively intubated due to worsening hypoxia and severe sepsis, now requiring pressor support. Sedated on fentanyl 60 g per hour and propofol. Tachycardic; troponin level currently 0.55. Likely demand ischemia secondary to underlying severe sepsis. Urine culture, blood culture and sputum cultures pending. Receiving Zosyn, Flucanazole, Metronidazole and Vancomycin. Palliative Care was consulted to assist with symptom management and to discuss with the family the benefits and burdens of his current illnesses and the options regarding future care. . Function/Cognitive Trajectory 76-year-old, morbidly obese male who has a known history of a large right-sided ventral hernia for many years; patient elected not to have surgical repair because he was high risk due to underlying medical conditions. Patient was independent, able to travel from [place] to [place] with his and friends each year for a month. . Review of Systems Constitutional: COMPLAINS OF: Diaphoretic episodes, DENIES: Fatigue, Fever, Weight gain, Weight loss, Chills, Dizziness, Change in appetite Gastrointestinal: COMPLAINS OF: Abdominal pain, DENIES: Diarrhea (ROS btained from review of notes and family report), Nausea, Vomiting Past Family Social History Coded Allergies: No Known Allergies (Unverified , 04/17/17) Past Medical History Hypertension Morbid obesity Sleep apnea Hyperlipidemia Hernia . Past Surgical History Hernia repair . Reported Medications Aller-Jessica (Cetirizine HCl) 10 Mg Tablet Flax Seed Oil 1300 mg (Flaxseed (Linseed)) 1,300-670MG Cap Aspirin 81 Mg Chew 81 Mg CHEW DAILY Atorvastatin (Atorvastatin Calcium) 40 Mg Tab 40 Mg PO HS Lisinopril 20 Mg Tab 20 Mg PO DAILY Amlodipine (Amlodipine Besylate) 10 Mg Tab 10 Mg PO DAILY . Current Medications Medications (Trade) Dose Ordered Sig/Gracy Route Start Time Stop Time Status Last Admin (Protonix Inj) 40 mg Q12H IV PUSH 04/18/17 02:00 04/18/17 02:35 (Zofran Inj) 4 mg Q6H PRN IV PUSH 04/18/17 02:00 (Ambien) 5 mg HS PRN PO 04/18/17 02:00 (Lovenox Inj) 40 mg Q24H SQ 04/18/17 09:00 Miscellaneous Information 1 Q361D XX 04/18/17 02:00 04/18/17 02:00 (Chlorhexidine 2% Cloth) 3 pack Taper DAILY@04 TOP 04/18/17 04:00 04/14/18 03:59 (Chlorhexidine 2% Cloth) 3 pack UNSCH PRN TOP 04/18/17 02:00 (Kirstin-Colace) 1 tab BID PO 04/18/17 09:00 (Milk Of Magnesia Liq) 30 ml Q12H PRN PO 04/18/17 02:00 (Senokot) 17.2 mg Q12H PRN PO 04/18/17 02:00 (Dulcolax Supp) 10 mg DAILY PRN RECTAL 04/18/17 02:00 (Lactulose Liq) 30 ml DAILY PRN PO 04/18/17 02:00 Piperacillin Sod/ Tazobactam Sod 100 ml @ 200 mls/hr Q6H IV 04/18/17 08:00 04/18/17 07:58 (Peridex 0.12% Liq) 15 ml BID@08,20 MT 04/18/17 20:00 Propofol 100 ml @ 5.217 mls/ hr TITRATE PRN IV 04/18/17 08:15 04/18/17 08:48 Fentanyl Citrate 250 ml @ 5 mls/hr TITRATE PRN IV 04/18/17 08:15 04/18/17 08:49 Phenylephrine HCl 160 mg/Dextrose 500 ml @ 7.5 mls/hr TITRATE PRN IV 04/18/17 08:15 (Brethine Inj) 1 mg UNSCH PRN SQ 04/18/17 08:15 (Tears Naturale Opth Soln) 1 drop Q8HR EACH EYE 04/18/17 14:00 (NS Flush) DAILY IV FLUSH 04/18/17 09:15 04/18/17 09:15 (NS Flush) UNSCH PRN IV FLUSH 04/18/17 09:15 (Trandate Inj) 10 mg Q1HR PRN IV PUSH 04/18/17 09:15 (Nitroglycerin 2% Oint) 2 inch Q6HR PRN TOPICAL 04/18/17 09:15 Nicardipine HCl 25 mg/Sodium Chloride 250 ml @ 50 mls/hr TITRATE PRN IV 04/18/17 09:15 Acetaminophen 100 ml @ 400 mls/hr Q8HR PRN IV 04/18/17 09:30 (Duoneb Neb) 1 ampule Q6HR NEB NEB 04/18/17 10:00 04/18/17 10:37 (Albuterol Neb) 2.5 mg Q2HR NEB PRN NEB 04/18/17 09:30 Metronidazole 100 ml @ 100 mls/hr Q6H IV 04/18/17 10:00 04/18/17 11:46 Pharmacy Profile Note 0 ml @ 0 mls/hr UNSCH OTHER 04/18/17 09:30 Fluconazole/ Sodium Chloride 100 ml @ 100 mls/hr Q24H IV 04/18/17 11:00 04/18/17 11:49 (D50w (Vial) Inj) 50 ml UNSCH PRN IV PUSH 04/18/17 09:30 (Glucagon Inj) 1 mg UNSCH PRN OTHER 04/18/17 09:30 (NovoLIN R SUPPLEMENTAL SCALE) 1 Q4HR SQ 04/18/17 12:00 Vancomycin HCl 2250 mg/Sodium Chloride 522.5 ml @ 250 mls/hr Q24H IV 04/18/17 12:00 04/18/17 13:19 Miscellaneous Information SPECIFIC LAB TO BE DRAWN: VANCO TROUGH DATE TO... ONCE ONCE .XX 04/20/17 11:45 04/20/17 11:46 Albumin Human 500 ml @ 250 mls/hr ONCE ONCE IV 04/18/17 12:30 04/18/17 14:29 Dobutamine HCl 1000 mg/Dextrose 250 ml @ 6.52 mls/hr TITRATE PRN IV 04/18/17 13:45 UNV . Family History No family history of critical/early CAD. Further information pending conversations with family. . Substance Use Tobacco: None known Alcohol: Occasional, social EtOH consumption Prescription med abuse: None known Illicits: None known . Psychosocial History Patient is from [place]. He has been to his , Marie, for 54 years. Today 04/18/2017 is their wedding anniversary. They have 1 adult daughter, Sheryl, who is 50 years old. Sheryl has never been and has no children. 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 He's been retired for approximately 13 years. He and his travel to [place] every winter for approximately 1 month. . Spiritual/Cultural Factors Mormonism josefina . Living Will: Never completed Health Care Surrogate: Never completed Durable Power of Touch Up Painter: Never completed Documented care wishes: No written advanced directives have been completed. . Today's verbally stated goals: Patient's is currently sedated and intubated on mechanical ventilator; he is unable to participate and clarification of medical treatment goals. . Family/friends goals: Patient's verbalizing her understanding that the patient is critically ill ; she does not want him to suffer unnecessarily. She states that he he has refused surgery in the past, and he would not proceed with surgical intervention given his current condition and the risks that surgery would present. . Ethical and Legal Issues No known ethical or legal issues impacting care. . Physical Exam Vital Signs Date Time Temp Pulse Resp B/P (MAP) Pulse Ox O2 Delivery O2 Flow Rate FiO2 04/18/17 12:19 93 100 04/18/17 12:00 98.5 120 30 95/45 (62) 96 04/18/17 12:00 120 04/18/17 11:00 98.5 118 24 72/47 (55) 97 04/18/17 10:00 120 04/18/17 10:00 98.6 120 24 106/47 (66) 92 04/18/17 09:00 98.6 140 25 148/65 (92) 97 04/18/17 08:57 97 100 04/18/17 08:00 131 04/18/17 08:00 98.6 134 41 129/82 (98) 92 04/18/17 07:00 93 Non-Rebreather 100 04/18/17 07:00 98.6 130 38 141/68 (92) 94 04/18/17 06:00 127 28 132/63 (86) 94 04/18/17 06:00 127 04/18/17 05:00 125 122/68 (86) 04/18/17 03:33 98.7 123 28 144/61 (88) 96 04/18/17 03:33 123 04/18/17 03:18 97 Non-Rebreather 100 04/18/17 01:40 96 Non-Rebreather 15.00 04/18/17 01:39 136 24 134/58 (83) 90 Nasal Cannula 5.00 04/18/17 00:00 112 24 139/61 (87) 94 Nasal Cannula 4.00 04/17/17 23:21 24 04/17/17 23:21 106 24 185/72 (109) 94 Nasal Cannula 2.00 04/17/17 23:20 93 Nasal Cannula 2.00 04/17/17 23:16 97.6 . 04/18/17 04/19/17 19:00 07:00 Intake Total 300 ml Output Total 75 ml Balance 225 ml IV Total 300 ml Output Urine Total 75 ml . Exam CONSTITUTIONAL/GENERAL: This is a morbidly obese, elderly male patient who is currently sedated and intubated on mechanical ventilation. TUBES/LINES/DRAINS: PIV 3, CVL, NGT, ETT, soft restraints, Marsh catheter SKIN: No jaundice, rashes, or lesions. Ecchymoses on upper extremities. Not diaphoretic. HEAD: Atraumatic. Normocephalic. EYES: Pupils 3mm, equal and reactive. Extraocular motions intact. No scleral icterus. No injection or drainage. Fundi not examined. ENT: Nose without bleeding or purulent drainage. NECK: Trachea midline. Right IJ is clean dry and intact CARDIOVASCULAR: Tachycardic No JVD. Peripheral pulses symmetric. RESPIRATORY/CHEST: Intubated on mechanical ventilation. Breath sounds diminished throughout. GASTROINTESTINAL: Abdomen is distended, extremely large right-sided ventral hernia. GENITOURINARY: Without palpable bladder distension. Marsh catheter in place. MUSCULOSKELETAL: Extremities without clubbing, cyanosis. Trace edema in bilateral lower extremities LYMPHATICS: No palpable cervical or supraclavicular adenopathy. NEUROLOGICAL: Sedated on fentanyl and propofol; does not arouse to verbal stimuli. PSYCHIATRIC: Unable to assess given patient's current clinical condition. . Diagnostic Tests Laboratory Laboratory Tests Test 04/17/17 23:44 04/18/17 02:24 04/18/17 03:18 04/18/17 04:27 White Blood Count 16.5 TH/MM3 (4.0-11.0) Red Blood Count 5.35 MIL/MM3 (4.50-5.90) Hemoglobin 16.2 GM/DL (13.0-17.0) Hematocrit 48.2 % (39.0-51.0) Mean Corpuscular Volume 90.2 FL (80.0-100.0) Mean Corpuscular Hemoglobin 30.3 PG (27.0-34.0) Mean Corpuscular Hemoglobin Concent 33.6 % (32.0-36.0) Red Cell Distribution Width 15.0 % (11.6-17.2) Platelet Count 202 TH/MM3 (150-450) Mean Platelet Volume 10.9 FL (7.0-11.0) Neutrophils (%) (Auto) 66.4 % (16.0-70.0) Lymphocytes (%) (Auto) 30.2 % (9.0-44.0) Monocytes (%) (Auto) 2.3 % (0.0-8.0) Eosinophils (%) (Auto) 0.9 % (0.0-4.0) Basophils (%) (Auto) 0.2 % (0.0-2.0) Neutrophils # (Auto) 10.9 TH/MM3 (1.8-7.7) Lymphocytes # (Auto) 5.0 TH/MM3 (1.0-4.8) Monocytes # (Auto) 0.4 TH/MM3 (0-0.9) Eosinophils # (Auto) 0.2 TH/MM3 (0-0.4) Basophils # (Auto) 0.0 TH/MM3 (0-0.2) CBC Comment DIFF FINAL Differential Comment Prothrombin Time 10.5 SEC (9.8-11.6) Prothromb Time International Ratio 1.0 RATIO Activated Partial Thromboplast Time 22.5 SEC (24.3-30.1) Blood Urea Nitrogen 15 MG/DL (7-18) Creatinine 1.56 MG/DL (0.60-1.30) Random Glucose 254 MG/DL (74-106) Total Protein 8.3 GM/DL (6.4-8.2) Albumin 3.9 GM/DL (3.4-5.0) Calcium Level 9.4 MG/DL (8.5-10.1) Alkaline Phosphatase 78 U/L (45-117) Aspartate Amino Transf (AST/SGOT) 36 U/L (15-37) Alanine Aminotransferase (ALT/SGPT) 26 U/L (12-78) Total Bilirubin 0.7 MG/DL (0.2-1.0) Sodium Level 139 MEQ/L (136-145) Potassium Level 4.4 MEQ/L (3.5-5.1) Chloride Level 105 MEQ/L (98-107) Carbon Dioxide Level 24.2 MEQ/L (21.0-32.0) Anion Gap 10 MEQ/L (5-15) Estimat Glomerular Filtration Rate 44 ML/MIN (>89) Lactic Acid Level 3.4 mmol/L (0.4-2.0) Troponin I LESS THAN 0.02 NG/ML 0.23 NG/ML (0.02-0.05) Lipase 291 U/L (73-393) Blood Gas Puncture Site RT RADIAL Blood Gas Patient Temperature 98.6 Blood Gas HCO3 17 mmol/L (22-26) Blood Gas Base Excess -8.7 mmol/L (-2-2) Blood Gas Oxygen Saturation 94 % (90-100) Arterial Blood pH 7.25 (7.380-7.420) Arterial Blood Partial Pressure CO2 41 mmHg (38-42) Arterial Blood Partial Pressure O2 88 mmHG (61-120) Arterial Blood Oxygen Content 22.2 Vol % (12.0-20.0) Arterial Blood Carboxyhemoglobin 0.5 % (0-4) Arterial Blood Methemoglobin 0.7 % (0-2) Blood Gas Hemoglobin 16.7 G/DL (12.0-16.0) Oxygen Delivery Device NRB Blood Gas Liter Flow 15 L/M Nasal Screen MRSA (PCR) MRSA NOT DETECTED (NOT Test 04/18/17 08:16 04/18/17 10:33 04/18/17 12:25 04/18/17 13:30 Troponin I 0.55 NG/ML (0.02-0.05) Blood Gas Puncture Site RT BRACHIAL INTRA-VENOUS Blood Gas Patient Temperature 98.6 98.6 Blood Gas HCO3 18 mmol/L (22-26) Blood Gas Base Excess -9.3 mmol/L (-2-2) Blood Gas Oxygen Saturation 93 % (90-100) Arterial Blood pH 7.16 (7.380-7.420) Arterial Blood Partial Pressure CO2 53 mmHg (38-42) Arterial Blood Partial Pressure O2 88 mmHg (61-120) Arterial Blood Oxygen Content 22.5 Vol % (12.0-20.0) Arterial Blood Carboxyhemoglobin 0.6 % (0-4) Arterial Blood Methemoglobin 1.0 % (0-2) Blood Gas Hemoglobin 17.1 G/DL (12.0-16.0) Oxygen Delivery Device VENTILATOR VENTILATOR Blood Gas Ventilator Setting SEE COMMENTS AC,20,600,PEEP8 Blood Gas Inspired Oxygen 100 % 100 % Lactic Acid Level 3.2 mmol/L (0.4-2.0) Venous Blood pH 7.10 (7.360-7.400) Venous Blood Partial Pressure CO2 72 mmHg (44-48) Venous Blood Partial Pressure O2 29 mmHg (35-40) Venous Blood HCO3 21 mmol/L (22-26) Venous Blood Oxygen Saturation 42 % (70-76) Venous Blood Oxygen Content 10.2 Vol % (9.0-17.0) Venous Blood Base Excess -7.3 mmol/L (-2-2) . Result Diagram: 04/17/17 2344 04/17/17 2344 Microbiology Microbiology Date/Time Source Procedure Growth Status 04/18/17 10:18 Sputum Endotracheal Gram Stain Pending Received 04/18/17 10:18 Sputum Endotracheal Sputum Culture Pending Received . Imaging Last 72 hours Impressions Chest X-Ray 04/18/17 0907 Signed Impressions: Service Date/Time: April 09:21 - CONCLUSION: 1. Interval placement of an endotracheal tube appropriately positioned above the tracy. Interval placement of right IJ central venous catheter with the tip projecting over the central venous system. 2. Stable appearance of the lungs with elevation of right hemidiaphragm, bibasilar atelectatic changes but no pneumothorax. 3. Heart size is borderline prominent but well compensated Favian Graham MD Abdomen/Pelvis CT 04/18/17 0049 Signed Impressions: Service Date/Time: April 01:02 - CONCLUSION: 1. There is a small amount of free intraperitoneal air indicating perforated bowel. The location of perforation is not identified. A small volume of free fluid is present within the abdomen and pelvis as well as the ventral hernia sac. 2. There is a large ventral abdominal wall hernia containing most of the small bowel and colon. It also contains free fluid. The hernia sac is not completely visualized since it extends outside of the imaged [id number]. 3. 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 4. Small right pleural effusion with bibasilar atelectasis versus consolidation. 5. The findings concerning perforated bowel were discussed with Dr. Spencer. Jatinder Fernandez MD Chest X-Ray 04/18/17 0000 Signed Impressions: Service Date/Time: April 04:00 - CONCLUSION: Stable chest x-ray with mild bibasilar opacity representing either atelectasis or consolidation. Jatinder Fernandez MD Chest X-Ray 04/17/17 2327 Signed Impressions: Service Date/Time: Monday, April 17, 2017 23:41 - CONCLUSION: Underinflated with mild bibasilar opacity most likely representing atelectasis related to the underinflation or less likely mild airspace consolidation. Jatinder Fernandez MD . Procedures 04/18/17: Intubation 04/18/17: Right IJ CVL placement . Patient/Family Conference Present at Family Conference: Met with patient's at bedside; spoke with her privately and family conference room. . Family Conference Location: Bedside, Consult Room Issues Discussed: * Palliative care role, purpose, approach * Additional medical, psychosocial, and spiritual history * Patients general health, functional status, and cognitive changes in the months leading up to the current hospitalization * Patient/family understanding of the current medical problems * Patient/family understanding of prognosis * Patients goals of care as best understood from advance directives and/or conversations and/or values * Current medical treatment options and benefits/burdens of those options * Likely scenarios comparing ongoing aggressive care with a transition to comfort measures only * Questions answered to the best of my ability * Palliative care contact information provided . Assessment and Plan Disease Oriented Problem List: (1) Morbid obesity (2) Sleep apnea (3) Hypertension (4) Sepsis (5) Perforation of viscus Symptom Scale: (1) Dyspnea 0-10 Scale: Unable to quantify (2) Pain 0-10 Scale: Unable to quantify Pertinent Non-Medical Issues Psychosocial:Patient is from [place]. He has been to his , Marie, for 54 years. Today 04/18/2017 is their wedding anniversary. They have 1 adult daughter, Sheryl, who is 50 years old. Sheryl has never been and has no children. 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 He's been retired for approximately 13 years. He and his travel to [place] every winter for approximately 1 month. Spiritual: Mormonism josefina Legal: Per [place] statutes, in the absence of written advanced directives healthcare proxy decision-making falls to the patient's Ethical issues impacting care: No known ethical issues impacting care at this time. . Important Contacts Mandy Hay, : [phone] or [phone] . Prognosis Mr Serrato is a morbidly obese, elderly male patient with a large right-sided ventral hernia (patient has had hernia for 10+ years) who was previously evaluated by the [facility] and told he was extremely high risk for elective surgical repair given his baseline health conditions. He was admitted yesterday with severe sepsis and perforation of viscus; he was subsequently intubated for worsening hypoxia and is now requiring pressor support. Given patient's body habitus, advanced age and multiple comorbid conditions he would be high risk for any type of surgical intervention as well as postoperative complications. The patient's family does not feel the patient would want to pursue surgical intervention and have elected to transition to comfort focused care in the upcoming days after the patient's daughter has arrived. . Code Status: No Code Plan * NO CODE-DNR/DNI * Decision-making: Due to the patient's current clinical condition, he has no insight or judgment related to his health, medical treatment goals. Per [place] statutes in the absence of written advanced directives healthcare proxy decision-making falls to the patient's , Marie. * Goals: Mr Serrato is a morbidly obese, elderly male patient with a large right- sided ventral hernia (patient has had hernia for 10+ years) who was previously evaluated by the [facility] and told he was extremely high risk for elective surgical repair given his baseline health conditions. He was admitted yesterday with severe sepsis and perforation of viscus; he was subsequently intubated for worsening hypoxia and is now requiring pressor support. Given patient's body habitus, advanced age and multiple comorbid conditions he would be high risk for any type of surgical intervention as well as postoperative complications. The patient's family does not feel the patient would want to pursue surgical intervention and have elected to transition to comfort focused care in the upcoming days after the patient's daughter has arrived. * Discussed patient with bedside nurse (Danika) and Dr. Gagnon. * Assembler Body consult requested for spousal support. * Symptom management: == Dyspnea: Patient is currently intubated on mechanical ventilation, requiring pressor support. FiO2 100%. Follow-up chest x-ray 04/18/17 stable with mild bibasilar opacity representing either atelectasis or consolidation. Tachycardic; troponin level currently 0.55. Likely demand ischemia secondary to underlying severe sepsis. Urine culture, blood culture and sputum cultures pending. Receiving Zosyn, Flucanazole, Metronidazole and Vancomycin. == Pain: Multifactorial. Contributing factors include morbid obesity, severe sepsis, dyspnea, extremely large right-sided central hernia with perforation of viscus, immobility, bedbound status, invasive lines, intubation. Patient is Currently on propofol and fentanyl drips for sedation/ analgesia. Fentanyl currently running at 60 mcg/hr and may be titrated up to 250 mcg/hr. * Palliative care contact information provided to the patient's . * Palliative care will continue to follow this patient throughout his hospitalization to establish trust, assist with symptom management and clarification of medical treatment goals. . Thank you for the opportunity to participate in the care of Mr. Serrato. . Attestation To help prompt me to consider important information that might be impacting today's encounter and assessment, information from prior notes written by myself or my colleagues may have been "brought forward" into today's note. My signature on this note, however, is an attestation that I personally performed the exam, history, and/or decision-making noted today, and, unless otherwise indicated, the interactions with patient, family, and staff as well as the review of records all occurred today. I also attest that the listed assessment and stated plan reflect my best clinical judgment today based on the combination of historical information, prior notes, and today's exam/ interactions. When time spent is documented, it refers only to time spent today by the signer, or if indicated, combined time spent today by collaborating physician/nurse practitioner. . Linda Allan Apr 18, 2017 14:01
[2017-04-18] MEDS: ARTIFICIAL TEARS OPTH SOLN 15 ML BTL EACH EYE SCH ×2 (14:28→22:00)
[2017-04-18] MEDS ORDERED: DOBUTamine INJ 1,000 MG in DEXTROSE 5% IN WATER INJ 170 ML IV PRN ×2 (15:00)
[2017-04-18] MEDS ORDERED: EPOPROSTENOL NEB SOLUTION 50 NG/KG/MIN 100 ML NEB SCH ×2 (15:00)
[2017-04-18] MEDS ORDERED: NOREPINEPHRINE-DEXTROSE DRIP 250 ML IV ONE (16:23)
[2017-04-18] MEDS: NOREPINEPHRINE INJ 4 MG in SODIUM CHLOR 0.9% 250 ML INJ 246 ML IV PRN ×2 (16:30→23:01)
[2017-04-18] MEDS ORDERED: VASOPRESSIN INJ 40 UNITS in DEXTROSE 5% IN WATER 100ML INJ 98 ML IV SCH ×2 (17:00)
[2017-04-18] MEDS ORDERED: HYDROCORTISONE SOD SUCCINATE 100 MG VIAL IV PUSH SCH (17:00)
--- NOTE | 2017-04-18 18:03 | ECHRPT ---
Indication: Heart failure, unspecified CONCLUSIONS The left ventricular systolic function is low normal with an estimated ejection fraction in the rang e of 50- 55%. Wall thickness is measured at the upper limits of normal. Normal left ventricular size. BP: 132 / 63 HR: 127 Rhythm: Sinus MEASUREMENTS (Male / Female) Normal Values Technical Quality:Technically difficult study 2D ECHO LV Diastolic Diameter PLAX 5.3 cm 4.2 - 5.9 / 3.9 - 5.3 cm LV Systolic Diameter PLAX 4.1 cm IVS Diastolic Thickness 1.1 cm 0.6 - 1.0 / 0.6 - 0.9 cm LVPW Diastolic Thickness 1.1 cm 0.6 - 1.0 / 0.6 - 0.9 cm LV Relative Wall Thickness 0.4 LVOT Diameter 2.4 cm M-MODE Aortic Root Diameter MM 2.2 cm LA Systolic Diameter MM 3.1 cm LA Ao Ratio MM 1.4 AV Cusp Separation MM 2.0 cm DOPPLER AV Peak Velocity 111.0 cm/s AV Peak Gradient 4.9 mmHg LVOT Peak Velocity 88.8 cm/s LVOT Peak Gradient 3.2 mmHg AV Area Cont Eq pk 3.6 cm TR Peak Velocity 220.0 cm/s TR Peak Gradient 19.4 mmHg Right Atrial Pressure 10.0 mmHg Pulmonary Artery Systolic Pressu 29.4 mmHg Right Ventricular Systolic Press 29.4 mmHg FINDINGS LEFT VENTRICLE The left ventricular systolic function is low normal with an estimated ejection fraction in the rang e of 50- 55%. Wall thickness is measured at the upper limits of normal. Normal left ventricular size. RIGHT VENTRICLE Normal right ventricular size and systolic function. LEFT ATRIUM The left atrial size is normal. RIGHT ATRIUM The right atrial size is normal. ATRIAL SEPTUM Normal atrial septal thickness without atrial level shunting by limited color doppler interrogation. AORTA The aortic root and proximal ascending aorta are normal in size on limited imaging. MITRAL VALVE Structurally normal mitral valve. No mitral valve stenosis or regurgitation. AORTIC VALVE Trileaflet aortic valve. No aortic valve stenosis or regurgitation. TRICUSPID VALVE Structurally normal tricuspid valve. No tricuspid valve stenosis or regurgitation. PULMONARY VALVE No pulmonary valve regurgitation or stenosis. VESSELS The inferior vena cava is normal in size. PERICARDIUM No pericardial effusion. Raghavendra Funes MD, FACC (Electronically Signed) Final Date:18 April 2017 18:02
[2017-04-18] MEDS ORDERED: CHLORHEXIDINE 0.12% (ORAL KIT) 15 ML CUP MT SCH (20:00)
--- NOTE | 2017-04-18 20:18 | EKG ---
Date Performed: 04/18/2017 Time Performed: 02:09:48 PTAGE: 76 years EKG: SINUS TACHYCARDIA MODERATE ST DEPRESSION ABNORMAL ECG NO PREVIOUS TRACING DOCTOR: Addy Cole Interpretating Date/Time 04/18/2017 20:15:03
[2017-04-19] VITALS: PULSE 107; RESP 23; TEMP 97.9; O2SAT 74
[2017-04-19] MEDS: INSULIN NovoLIN REGULAR SUPPLEMENTAL SCALE SQ SCH
[2017-04-19 00:14] VITALS: O2SAT 76; O2SAT 86
[2017-04-19 00:15] VITALS: PULSE 82
[2017-04-19 00:20] VITALS: PULSE 60
[2017-04-19 00:25] VITALS: PULSE 0
--- NOTE | 2017-04-19 01:16 | DEATH SUM ---
Pronouncement Date Pronounced : Apr 19, 2017 Time Of : 00:24 Pronouncement Called to pronounce of patient. Identified patient as Néstor Serrato with wrist band MR# [id number]. Patient with no cardiac activity in 2 separate leads and no palpable/auscible cardiac activity. Patient with no spontaneous respirations, no corneal reflex or response to painful stimuli. Pupils fixed and dilated. Preliminary Cause of : Cardiac arrest Francisca Melchor MD R2 Apr 19, 2017 01:16
--- NOTE | 2017-04-19 05:42 | MB ---
cc: LALO NGUYEN M.D. DATE OF CONSULTATION 04/18/2017 REASON FOR CONSULTATION Pneumoperitoneum. HISTORY OF PRESENT ILLNESS The patient is a morbidly obese 76-year-old male whose reports that he has had some abdominal pain since Saturday (3-1/2 half days ago). This became particularly severe last night after eating. He had pain and workup demonstrates pneumoperitoneum. The patient has had a massive ventral hernia with [facility] opinion that he would have a 50/50 chance of survival with elective repair. The patient has a particularly severe pain in the lower abdomen. REVIEW OF SYSTEMS Significant for diaphoresis and abdominal pain. Remainder of his review of systems is negative for a 10-point review. PAST MEDICAL HISTORY ALLERGIES He has no known allergies. MEDICAL PROBLEMS 1. Hypertension. 2. Obstructive sleep apnea. 3. Dyslipidemia. 4. Massive ventral hernia. MEDICATIONS ON ADMISSION 1. Cetirizine 10 mg q. day. 2. Aspirin 81 mg q. day. 3. Atorvastatin 40 mg q.h.s. 4. Lisinopril 20 mg q. day. 5. Amlodipine 10 mg q. day. PHYSICAL EXAMINATION GENERAL: Physical exam reveals a morbidly obese male who is tachypneic. VITAL SIGNS: BP 141/68, pulse 130, respirations 38, temperature 98.6, 93% saturation on non-rebreather. CHEST: The chest demonstrates decreased breath sounds bilaterally. CARDIAC: Exam reveals tachycardia. ABDOMEN: Protuberant with massive incisional hernia on the right side of the abdomen above the umbilicus. This is nonreducible. The patient has pain in the hernia, below the hernia and above the hernia in the entire abdomen. He has some rebound tenderness as well. NEUROLOGIC EXAM: The patient is alert and oriented. He is in mild distress. Sensorimotor exam is grossly intact. He is able to move all four extremities. LABORATORY VALUES WBCs of 16.5 with a hemoglobin of 16.2 and platelets of 202,000. Chemistries demonstrate a glucose of 254, potassium 4.4, BUN and creatinine are 50 and 1.56. Liver function tests are essentially within normal limits. IMAGING STUDIES Imaging demonstrates sigmoid colon with diverticulosis extending into the ventral hernia. There is a small volume of free air in the abdomen and a small volume of free fluid in the abdomen and pelvis. There is a small amount of free fluid in the image portion of the ventral hernia. ASSESSMENT Pneumoperitoneum from likely perforated viscus. Possibly perforated ulcer versus perforation in the hernia versus diverticulitis, although the latter is much less likely. I have had a discussion with the patient, his and Dr. Gagnon, the priest. The patient is being intubated and will continue to receive resuscitation as he has been over the last 4 hours after admission from the ER by Dr. Curtis. If the patient improves, we will consider interventional radiology to drain fluid and obtain sampling and continue antibiotics. NG tube has already been placed to prevent further spillage if he has a perforated duodenal ulcer. The patient did admit to using some nonsteroidals although on an intermittent basis and he may have a perforated ulcer. If the patient continues to deteriorate, I have spoken with both the patient and his and consideration would be given to emergent surgical intervention. They realize that there is a high mortality regardless of when the patient is taken to the operating room due to his other comorbidities including his extreme obesity. I have also discussed with them that he would likely require open abdomen and to remain opened after the surgical procedure. PLAN We will follow closely and I will be back in a few hours to recheck the patient. MD MAITE Roberts/ELY /1:29 PM /5:29 AM ANTHONY
--- NOTE | 2017-04-19 07:20 | HHI.DS ---
Summary Note Date of : Apr 19, 2017 Time Of : 00:24 Admission Date Apr 18, 2017 at 01:53 Admitting Diagnosis Viscous perforation; sepsis Diagnosis at Time of : (1) Perforated viscus ICD Code: R19.8 - Other specified symptoms and signs involving the digestive system and abdomen Diagnosis: Principal (2) BMI 50.0-59.9, adult ICD Code: Z68.43 - Body mass index (BMI) 50-59.9 , adult Diagnosis: Principal (3) Lactic acid acidosis ICD Code: E87.2 - Acidosis Diagnosis: Principal (4) Severe sepsis ICD Code: A41.9 - Sepsis, unspecified organism; R65.20 - Severe sepsis without septic shock Diagnosis: Principal (5) Sleep apnea ICD Code: G47.30 - Sleep apnea, unspecified Diagnosis: Principal Procedures Right IJ CVL 04/18 Endotracheal intubation 04/18 Brief History 76-year-old male presents to the emergency department from home by EMS transport for evaluation of severe right lower quadrant abdominal pain onset 30 minutes after eating beef. Patient has known history of very large right-sided ventral hernia that has been determined to be electively inoperable as his physicians at the [facility] have identified to have a 50-50 chance of survival of the surgery due to his underlying health. Patient states that he always develops abdominal pain when he eats beef as he cannot tolerate beef consumption. Shortly after eating beef this evening he started having right lower quadrant pain. Patient states he has had a very large hernia for years more recently he thinks it might be slightly larger but has not changed significantly in size or character or location tonight or since yesterday. Patient rates pain as severe. No nausea or vomiting. Patient did take antacid without relief. CBC/BMP: 04/17/17 2344 04/17/17 2344 Significant Findings Laboratory Tests Test 04/17/17 23:44 04/18/17 02:24 04/18/17 03:18 04/18/17 04:27 White Blood Count 16.5 TH/MM3 (4.0-11.0) Neutrophils # (Auto) 10.9 TH/MM3 (1.8-7.7) Lymphocytes # (Auto) 5.0 TH/MM3 (1.0-4.8) Activated Partial Thromboplast Time 22.5 SEC (24.3-30.1) Creatinine 1.56 MG/DL (0.60-1.30) Random Glucose 254 MG/DL (74-106) Total Protein 8.3 GM/DL (6.4-8.2) Estimat Glomerular Filtration Rate 44 ML/MIN (>89) Lactic Acid Level 3.4 mmol/L (0.4-2.0) Troponin I LESS THAN 0.02 NG/ML 0.23 NG/ML (0.02-0.05) Blood Gas HCO3 17 mmol/L (22-26) Blood Gas Base Excess -8.7 mmol/L (-2-2) Arterial Blood pH 7.25 (7.380-7.420) Arterial Blood Oxygen Content 22.2 Vol % (12.0-20.0) Blood Gas Hemoglobin 16.7 G/DL (12.0-16.0) Test 04/18/17 08:16 04/18/17 10:33 04/18/17 12:25 04/18/17 13:30 Troponin I 0.55 NG/ML (0.02-0.05) Blood Gas HCO3 18 mmol/L (22-26) Blood Gas Base Excess -9.3 mmol/L (-2-2) Arterial Blood pH 7.16 (7.380-7.420) Arterial Blood Partial Pressure CO2 53 mmHg (38-42) Arterial Blood Oxygen Content 22.5 Vol % (12.0-20.0) Blood Gas Hemoglobin 17.1 G/DL (12.0-16.0) Lactic Acid Level 3.2 mmol/L (0.4-2.0) Venous Blood pH 7.10 (7.360-7.400) Venous Blood Partial Pressure CO2 72 mmHg (44-48) Venous Blood Partial Pressure O2 29 mmHg (35-40) Venous Blood HCO3 21 mmol/L (22-26) Venous Blood Oxygen Saturation 42 % (70-76) Venous Blood Base Excess -7.3 mmol/L (-2-2) Imaging Last Impressions Abdomen/Pelvis CT 04/18/17 0049 Signed Impressions: Service Date/Time: April 01:02 - CONCLUSION: 1. There is a small amount of free intraperitoneal air indicating perforated bowel. The location of perforation is not identified. A small volume of free fluid is present within the abdomen and pelvis as well as the ventral hernia sac. 2. There is a large ventral abdominal wall hernia containing most of the small bowel and colon. It also contains free fluid. The hernia sac is not completely visualized since it extends outside of the imaged [id number]. 3. 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 4. Small right pleural effusion with bibasilar atelectasis versus consolidation. 5. The findings concerning perforated bowel were discussed with Dr. Spencer. Jatinder Fernandez MD Chest X-Ray 04/18/17 0000 Signed Impressions: Service Date/Time: , April 18, 2017 04:00 - CONCLUSION: Stable chest x-ray with mild bibasilar opacity representing either atelectasis or consolidation. Jatinder Fernandez MD Hospital Course Neuro/Psych: Allergic rhinitis Currently on propofol/fentanyl drips for sedation/analgesia while intubated Goal of RA SS -2 Daily sedation vacation Holding cetirizine 10 mg daily for allergic rhinitis CV: Severe sepsis Sinus tachycardia Lactic acidosis Elevated troponin Currently holding atorvastatin 40 mg by mouth daily for dyslipidemia. Resume when clinically indicated Holding amlodipine 10 g daily, lisinopril 20 mg daily for hypertension with severe sepsis/acute kidney injury with lisinopril. Resume when clinically indicated Holding aspirin 81 mg daily with possible upcoming surgery. 2-D echocardiogram again pending Troponin currently 0.55. Currently on sinus tachycardia. Likely demand ischemia secondary to underlying severe sepsis. Resp: Acute hypoxemic respiratory failure Obstructive sleep apnea Possible right lower lobe infiltrate PRVC 16/550/1.3/8/100 Ventilator bundle Abuse/ipratropium aerosols every 6 hours albuterol aerosol every 2 hours when necessary Dyspnea Follow-up chest x-ray post intubation with ABG Patient did not bring in his CPAP machine to the hospital GI: Perforated viscus/free air Large ventral hernia CT abdomen/pulse revealed free intraperitoneal air. Ventral hernia encompasses entire small bowel and colon Free fluid in the abdomen/pelvis and ventral hernia. Atherosclerotic vascular disease right common iliac artery 3.[address] Salguero/general surgery. Place for IR for drainage. If patient worsens Dr. Salguero will take back to the OR for exploratory surgery Metoprolol 40 mg IV twice a day GI prophylaxis Procedure evaluated by [facility]. 50% mortality with surgery given this patient : Marsh catheter for accurate I's and O's in a critically ill patient Endo: Elevated MBS - Sliding-scale insulin with Accu-Cheks every 4 hours to maintain euglycemia Novulin R medium regimen Check hemoglobin A1c and TSH Renal: Acute kidney injury Avoid nephrotoxic drugs CT abdomen/pelvis revealed no hydronephrosis Monitor urine output with Marsh catheter Check urine eosinophils and urinary electrolytes Heme: Leukocytosis Monitor CBC daily/follow trends No indications for transfusion of blood products at this time ID: Received piperacillin/tazobactam and metronidazole ED. Currently day 1 piperacillin/tazobactam, fluconazole, metronidazole and vancomycin Blood cultures 2/sputum/urine output MSK: Elevated BMI Weight loss encouraged PT evaluate and treat FEN: Replace electrolytes as clinically indicated Access - Right IJ CVL day 1 placed 04/18 Prophylaxis - GI - pantoprazole - DVT - SCD/enoxaparin 35 minutes additional critical care minutes spent in care of this patient discussed with , patient. Dr. Salguero and RN. Discussed with Dr. Salguero. Discussed with . Discussed with palliative care. does not wish aggressive therapy including surgery. Mr. Serrato would have prolonged recovery with open abdomen post intervention with prolonged recovery time. Daughter coming down tonight and likely will extubate tomorrow with transition to comfort cares. DNR status currently. Patient required escalating amounts of vasopressors. On vasopressin, phenylephrine and norepinephrine and stress dose hydrocortisone. Time of 0024 on 04/19. Haider Gagnon MD Apr 19, 2017 07:20
[2017-04-20] MEDS ORDERED: PHARMACY ORDERED LAB ONE (11:45)
== END 2017-04-19 02:26 | disposition expired | DRG 871 ==
LOC: NEPC 23:13 → NEDA 04-18 01:53 → N03B 04-18 02:44
PROVIDERS: ADMIT Internal Medicine Critical Care Medicine; ATTEND Internal Medicine Critical Care Medicine
PROC: 5A1935Z Respiratory Ventilation, Less than 24 Consecutive Hours (ICD-10-PCS; principal; 2017-04-18)
PROC: 0BH17EZ Insertion of Endotracheal Airway into Trachea, Via Natural or Artificial Opening (ICD-10-PCS; 2017-04-18)
PROC: 02HV33Z Insertion of Infusion Device into Superior Vena Cava, Percutaneous Approach (ICD-10-PCS; 2017-04-18)
PROC: B543ZZA Ultrasonography of Right Jugular Veins, Guidance (ICD-10-PCS; 2017-04-18)
DX: A41.9 Sepsis, unspecified organism (principal); K63.1 Perforation of intestine (nontraumatic); J96.01 Acute respiratory failure with hypoxia; Z51.5 Encounter for palliative care; N17.9 Acute kidney failure, unspecified; I24.8 Other forms of acute ischemic heart disease; E87.2 Acidosis; K66.8 Other specified disorders of peritoneum; Z68.43 Body mass index [BMI] 50.0-59.9, adult; Z66 Do not resuscitate; K43.9 Ventral hernia without obstruction or gangrene; E66.01 Morbid (severe) obesity due to excess calories; R65.20 Severe sepsis without septic shock; E86.0 Dehydration; I10 Essential (primary) hypertension; E78.5 Hyperlipidemia, unspecified; I25.10 Atherosclerotic heart disease of native coronary artery without angina pectoris; G47.33 Obstructive sleep apnea (adult) (pediatric); J30.9 Allergic rhinitis, unspecified; I72.3 Aneurysm of iliac artery; I70.0 Atherosclerosis of aorta; I46.9 Cardiac arrest, cause unspecified
CPT/HCPCS: 31500; 36600; 71045; 74177; 80053; 82805; 82948; 83605; 83690; 84484; 85025; 85610; 85730; 87070; 87205; 87641; 93005; 93306; 94002; 94640; 94664; 96361; 96365; 96375; 96376; C9113; J1170; J1250; J1450; J1720; J2370; J2405; J2543; J3010; J3370; J7030; J7040; J7050; J7060; Q9967